=== PATIENT | male | born 1970 | race Caucasian/White ===

== ENCOUNTER 2024-03-09 11:38 | Day surgery (SDC) | payer BC ==
[2024-03-09] MEDS: Lactated Ringers 1,000 ML IV SCH (12:52)
[2024-03-09] MEDS ORDERED: propofoL 50 ML ONE (13:20)
[2024-03-09] MEDS ORDERED: Lidocaine 2% 5 ML SDV ONE (13:20)
[2024-03-09] MEDS ORDERED: Lactated Ringers 1,000 ML IV SCH (14:15)
== END 2024-03-09 14:45 | disposition home or self-care (01) ==
LOC: MW.SDS 11:38
PROVIDERS: ATTEND Surgery
DX: Z12.11 Encounter for screening for malignant neoplasm of colon (principal); F32.A Depression, unspecified; E66.01 Morbid (severe) obesity due to excess calories; Z68.41 Body mass index [BMI] 40.0-44.9, adult; E78.00 Pure hypercholesterolemia, unspecified; Z87.891 Personal history of nicotine dependence; Z79.899 Other long term (current) drug therapy; Z88.0 Allergy status to penicillin; Z88.1 Allergy status to other antibiotic agents
CPT/HCPCS: 45378; J2704; J7120; J3490